=== PATIENT | male | born 2000 | race Caucasian/White ===

== ENCOUNTER 2025-04-25 22:58 | Emergency (ER) | payer BC ==
[~2025-04-25] VITALS: Ht 188 cm; Wt 69.0 kg
[2025-04-25 23:51] LABS: BASOPHILS % 1.3 % (0.0-2.0); EOSINOPHILS % 5.1 % (0.0-5.0); HEMATOCRIT. 42.6 % (42.0-52.0); HEMOGLOBIN. 14.7 g/dL (14.0-18.0); LYMPHOCYTES % 32.6 % (20.0-50.0); MEAN PLATELET VOLUME 9.5 fl (7.4-10.4); MONOCYTES % 10.0 % (2.0-8.0); NEUTROPHILS % 51.0 % (40.0-76.0); PLATELET 222 x1000/uL (130-400); RED BLOOD CELL COUNT 4.73 mill/uL (4.7-6.1); RED CELL DISTRIBUTION WIDTH 13.2 % (11.6-14.6)
[2025-04-25 23:59] VITALS: O2SAT 97
[2025-04-26 00:04] LABS: CREATININE 1.0 mg/dL (0.6-1.3)
[2025-04-26 00:05] LABS: UREA NITROGEN BLOOD 13 mg/dL (9-23)
[2025-04-26 00:06] LABS: ASPARTATE AMINOTRANSFERASE 13 IU/L (<34)
[2025-04-26 00:07] LABS: BILIRUBIN DIRECT 0.4 mg/dL (<=3.0); BILIRUBIN TOTAL 1.6 mg/dL (0.1-1.0); PROTEIN TOTAL 7.3 g/dL (6.0-8.3)
[2025-04-26] MEDS: KETOROLAC 15MG/ML VIAL IV ONE (01:18)
[2025-04-26] MEDS: SODIUM CHLORIDE 0.9% 1,000 ML IV ONE (01:18)
[2025-04-26] MEDS: IOHEXOL-300 100 ML BOTTLE ONE (03:09)
[2025-04-26] MEDS ORDERED: ONDA4TAB50 MT (04:34)
[2025-04-26] MEDS ORDERED: DOCU-138 MT (04:34)
[2025-04-26 05:09] VITALS: BP 114/62; PULSE 80; RESP 16; TEMP 37.1; O2SAT 97
== END 2025-04-26 05:13 | disposition home or self-care (01) ==
LOC: ER 22:58
DX: R10.31 Right lower quadrant pain (principal)
CPT/HCPCS: 99285; 80076; 80048; 83690; 85025; 36415; 74177; 96374; 96361; J1885; Q9967; J7030; 81003